=== PATIENT | female | born 2000 | race Two or more races ===

== ENCOUNTER 2021-12-01 01:41 | Emergency (ER) | payer MEDICAID ==
[~2021-12-01] VITALS: Ht 175.3 cm; Wt 56.2 kg
[2021-12-01 02:37] VITALS: BP 104/84
--- NOTE | 2021-12-01 02:37 | NUR ---
BIBS FOR DOG BITE TO FACE AND HAND. TDAP UTD. PT A/OX4. RESP EVEN AND NON LABORED ON R/A; TOLERATING WELL. CONNECTED PT TO POX AND MONITOR. SAFETY MEASURES IN PLACE.
--- NOTE | 2021-12-01 02:49 | NUR ---
DR. DENISE MCGEE AT PT'S BEDSIDE
[2021-12-01] MEDS ORDERED: AMOX-430 PO (02:55)
--- NOTE | 2021-12-01 02:59 | NUR ---
WOUND CARE APPLIED.
[2021-12-01] MEDS ORDERED: AMOX/CLAVULANATE 875 MG TABLET PO ONE (03:00)
[2021-12-01] MEDS ORDERED: TDAP [DIPH/PERTUSSIS/TET] 0.5 ML VIAL IM ONE (03:00)
== END 2021-12-01 03:03 | disposition home or self-care (01) ==
LOC: ER 01:46
DX: S01.432A Puncture wound without foreign body of left cheek and temporomandibular area, initial encounter (principal); W54.0XXA Bitten by dog, initial encounter; Y93.89 Activity, other specified; Y92.89 Other specified places as the place of occurrence of the external cause; Y99.8 Other external cause status